=== PATIENT | male | born 1950 | race Caucasian/White ===

== ENCOUNTER 2020-06-17 15:18 | Inpatient (IN) | payer OTHER ==
[~2020-06-17] VITALS: Ht 180.3 cm; Wt 122.2 kg
[~2020-06-17 15:18] MED LIST: ALDACTONE 25MG25 MG PO; ASPIRIN EC81 MG PO; AUGMENTIN TAB875 MG PO; CARDURA 2MG TAB2 MG PO; COLACE 100MG C100 MG PO; DOXYCYCLINE HY100 MG PO; FENOFIBRIC ACI135 MG PO; FERROUS SULFAT325 M2 PO; HUMALOG100 UNIT/3 SQ; HYDRALAZINE HCL50 MG PO; IMDUR ER TAB 6060 MG PO; LANTUS INS100 UTS/M1 SQ; LANTUS100 UNIT/1 SC; LASIX 40 MG TAB40 MG PO; LIPITOR TAB 2020 MG PO; LISINOPRIL30 MG PO; LORTAB 5-325 M1 EACH PO; METFORMIN HCL1000 MG PO; METOPROLOL TART50 MG PO; NORVASC5 MG PO; PLETAL 100 MG100 MG PO
[2020-06-17] MEDS ORDERED: ZYLOPRIM 100 M100 MG PO (18:28)
[2020-06-17] MEDS ORDERED: COREG12.5 MG PO (18:29)
[2020-06-17] MEDS ORDERED: MIRALAX17 GM PO (18:38)
[2020-06-18 06:15] LABS: HEMOGLOBIN 7.8 gm/dl (14.0-17.5); RED BLOOD COUNT 2.71 M/UL (4.20-5.50); WHITE BLOOD COUNT 9.1 K/UL (4.5-11.0)
[2020-06-19 06:12] LABS: HEMOGLOBIN 7.7 gm/dl (14.0-17.5); RED BLOOD COUNT 2.64 M/UL (4.20-5.50); WHITE BLOOD COUNT 8.3 K/UL (4.5-11.0)
[2020-06-20 07:57] LABS: HEMOGLOBIN 7.2 gm/dl (14.0-17.5); RED BLOOD COUNT 2.63 M/UL (4.20-5.50); WHITE BLOOD COUNT 9.6 K/UL (4.5-11.0)
[2020-06-21 03:37] LABS: HEMOGLOBIN 7.4 gm/dl (14.0-17.5); RED BLOOD COUNT 2.54 M/UL (4.20-5.50)
[2020-06-22 06:16] LABS: HEMOGLOBIN 7.2 gm/dl (14.0-17.5); RED BLOOD COUNT 2.48 M/UL (4.20-5.50); WHITE BLOOD COUNT 10.8 K/UL (4.5-11.0)
[2020-06-23 03:17] LABS: RED BLOOD COUNT 2.42 M/UL (4.20-5.50); WHITE BLOOD COUNT 8.8 K/UL (4.5-11.0)
[2020-06-24 02:49] LABS: HEMOGLOBIN 8.1 gm/dl (14.0-17.5); WHITE BLOOD COUNT 9.3 K/UL (4.5-11.0)
[2020-06-24 03:01] LABS: RED BLOOD COUNT 2.77 M/UL (4.20-5.50)
[2020-06-25 03:41] LABS: RED BLOOD COUNT 2.76 M/UL (4.20-5.50); WHITE BLOOD COUNT 9.2 K/UL (4.5-11.0)
[2020-06-27 04:00] LABS: HEMOGLOBIN 8.5 gm/dl (14.0-17.5); RED BLOOD COUNT 2.91 M/UL (4.20-5.50); WHITE BLOOD COUNT 10.1 K/UL (4.5-11.0)
[2020-10-01] MEDS ORDERED: FERROUS SULFAT325 MG PO (07:26)
[2020-10-01] MEDS ORDERED: VITAMIN B-125000 MC2 PO (07:27)
[2020-10-01] MEDS ORDERED: NOVOLOG100 UNIT/1 SC (07:28)
[2020-10-22] MEDS ORDERED: BUMETANIDE2 MG PO (01:48)
[2020-10-22] MEDS ORDERED: ZAROXOLYN/DIULO5 MG PO (01:50)
[2020-10-22] MEDS ORDERED: CATAPRES-TTS 31 EACH TP (12:18)
[2020-10-22] MEDS ORDERED: LANTUS INS100 UTS/M1 SQ (12:21)
== END 2020-06-27 20:54 | disposition home or self-care (01) | DRG 291 ==
LOC: CDU 16:01 → M/S 16:01
PROVIDERS: Internal Medicine Infectious Disease; Internal Medicine Nephrology; ADMIT Internal Medicine
PROC: B24BZZZ Ultrasonography of Heart with Aorta (ICD-10-PCS; 2020-06-21)
PROC: 30233N1 Transfusion of Nonautologous Red Blood Cells into Peripheral Vein, Percutaneous Approach (ICD-10-PCS; principal; 2020-06-23)
DX: I13.0 Hypertensive heart and chronic kidney disease with heart failure and stage 1 through stage 4 chronic kidney disease, or unspecified chronic kidney disease (principal); I50.33 Acute on chronic diastolic (congestive) heart failure; J96.01 Acute respiratory failure with hypoxia; N17.9 Acute kidney failure, unspecified; E66.2 Morbid (severe) obesity with alveolar hypoventilation; Z20.822 Contact with and (suspected) exposure to COVID-19; K59.00 Constipation, unspecified; N18.30 Chronic kidney disease, stage 3 unspecified; E11.22 Type 2 diabetes mellitus with diabetic chronic kidney disease; E78.5 Hyperlipidemia, unspecified; E11.65 Type 2 diabetes mellitus with hyperglycemia; I89.0 Lymphedema, not elsewhere classified; D50.9 Iron deficiency anemia, unspecified; R19.5 Other fecal abnormalities; I25.10 Atherosclerotic heart disease of native coronary artery without angina pectoris; Z95.1 Presence of aortocoronary bypass graft; Z90.49 Acquired absence of other specified parts of digestive tract; Z82.49 Family history of ischemic heart disease and other diseases of the circulatory system; Z87.891 Personal history of nicotine dependence; Z68.39 Body mass index [BMI] 39.0-39.9, adult; Z79.82 Long term (current) use of aspirin; Z79.4 Long term (current) use of insulin; Z79.899 Other long term (current) drug therapy; Z85.038 Personal history of other malignant neoplasm of large intestine
CPT/HCPCS: ECHO; 36415; 36430; 36600; 71045; 71046; 80048; 80053; 82270; 82272; 82803; 82962; 83036; 83540; 83550; 83735; 85025; 86140; 86850; 86870; 86900; 86901; 86902; 86905; 86920; 86922; 93306; 93971; 94640; 94660; 94664; 94760; 96374; 96375; 96376; 97110-GP-CQ; 97116-GP-CQ; 97161; C9113; G0378; G0379; J0696; J1644; J1756; J1940; J7070; P9016; U0002

== ENCOUNTER → 2020-08-12 | Outpatient (CLI) | payer OTHER ==
[~2020-08-12] MED LIST changes: +BUMETANIDE2 MG PO; +CATAPRES-TTS 31 EACH TP; +COREG12.5 MG PO; +FERROUS SULFAT325 MG PO; +HUMALOG100 UNIT/1 SC; +LOPRESSOR50 MG PO; +MIRALAX17 GM PO; +NOVOLOG100 UNIT/1 SC; +PROTONIX 40 MG40 M1 PO; +TYLENOL325 MG PO; +VITAMIN B-125000 MC2 PO; +ZAROXOLYN/DIULO5 MG PO; +ZYLOPRIM 100 M100 MG PO
[2020-08-13 14:17] LABS: HEMOGLOBIN 7.4 gm/dl (14.0-17.5)
== END ==
LOC: LAB 15:08
PROVIDERS: Internal Medicine Hematology & Oncology
DX: D64.9 Anemia, unspecified (principal)
CPT/HCPCS: 80053; 82668; 82728; 83010; 83540; 83550; 83615; 85014; 85018; 85045; 86850; 86870; 86900; 86901; 86920; 86922; P9016

== ENCOUNTER → 2020-08-13 | Outpatient (CLI) | payer OTHER ==
[~2020-08-13] VITALS: Ht 180.3 cm; Wt 127.9 kg
== END ==
LOC: OPSV 08:00
DX: D64.9 Anemia, unspecified (principal)
CPT/HCPCS: 36430; 96365; 96375; J1940; P9016

== ENCOUNTER → 2020-09-02 | Outpatient (CLI) | payer OTHER ==
[~2020-09-02] MED LIST changes: +BUMETANIDE1 MG PO
== END ==
LOC: HEART 5 09:00
DX: I25.10 Atherosclerotic heart disease of native coronary artery without angina pectoris (principal); R06.89 Other abnormalities of breathing
CPT/HCPCS: 78452; A9502; J2785

== ENCOUNTER → 2020-10-01 | Day surgery (SDC) | payer OTHER | END | disposition home or self-care (01) | LOC: OR 06:38 | PROVIDERS: Internal Medicine Gastroenterology | PROC: 0DJD8ZZ Inspection of Lower Intestinal Tract, Via Natural or Artificial Opening Endoscopic (ICD-10-PCS; 2020-10-01) | PROC: 0DB68ZX Excision of Stomach, Via Natural or Artificial Opening Endoscopic, Diagnostic (ICD-10-PCS; principal; 2020-10-01 09:05) | PROC: 0DB78ZX Excision of Stomach, Pylorus, Via Natural or Artificial Opening Endoscopic, Diagnostic (ICD-10-PCS; 2020-10-01 09:05) | DX: K29.51 Unspecified chronic gastritis with bleeding (principal); K31.9 Disease of stomach and duodenum, unspecified; K21.00 Gastro-esophageal reflux disease with esophagitis, without bleeding; K57.30 Diverticulosis of large intestine without perforation or abscess without bleeding; K64.1 Second degree hemorrhoids; K25.9 Gastric ulcer, unspecified as acute or chronic, without hemorrhage or perforation; D50.0 Iron deficiency anemia secondary to blood loss (chronic); I25.10 Atherosclerotic heart disease of native coronary artery without angina pectoris; I13.0 Hypertensive heart and chronic kidney disease with heart failure and stage 1 through stage 4 chronic kidney disease, or unspecified chronic kidney disease; E11.22 Type 2 diabetes mellitus with diabetic chronic kidney disease; N18.30 Chronic kidney disease, stage 3 unspecified; I50.32 Chronic diastolic (congestive) heart failure; E78.5 Hyperlipidemia, unspecified; G47.30 Sleep apnea, unspecified; E78.00 Pure hypercholesterolemia, unspecified; E11.628 Type 2 diabetes mellitus with other skin complications; L03.90 Cellulitis, unspecified; I89.0 Lymphedema, not elsewhere classified; E66.01 Morbid (severe) obesity due to excess calories; Z68.39 Body mass index [BMI] 39.0-39.9, adult; Z95.5 Presence of coronary angioplasty implant and graft; Z85.038 Personal history of other malignant neoplasm of large intestine; Z87.891 Personal history of nicotine dependence; Z79.4 Long term (current) use of insulin; Z79.82 Long term (current) use of aspirin; Z79.899 Other long term (current) drug therapy; Z90.49 Acquired absence of other specified parts of digestive tract | CPT/HCPCS: 82962; J2001; J2704; J7040 ==

== ENCOUNTER 2020-10-16 15:08 | Emergency (ER) | payer OTHER ==
[~2020-10-16 15:08] MED LIST changes: -BUMETANIDE1 MG PO; -BUMETANIDE2 MG PO; -CATAPRES-TTS 31 EACH TP; -HUMALOG100 UNIT/1 SC; -LOPRESSOR50 MG PO; -PROTONIX 40 MG40 M1 PO; -TYLENOL325 MG PO; -ZAROXOLYN/DIULO5 MG PO
[2020-10-16 16:26] LABS: HEMOGLOBIN 7.5 gm/dl (14.0-17.5); RED BLOOD COUNT 2.57 M/UL (4.20-5.50); WHITE BLOOD COUNT 9.3 K/UL (4.5-11.0)
[2020-10-22] MEDS ORDERED: BUMETANIDE2 MG PO (01:48)
[2020-10-22] MEDS ORDERED: ZAROXOLYN/DIULO5 MG PO (01:50)
[2020-10-22] MEDS ORDERED: CATAPRES-TTS 31 EACH TP (12:18)
[2020-10-22] MEDS ORDERED: LANTUS INS100 UTS/M1 SQ (12:21)
== END 2020-10-17 01:45 | disposition home or self-care (01) ==
LOC: ER1 15:08
DX: I13.0 Hypertensive heart and chronic kidney disease with heart failure and stage 1 through stage 4 chronic kidney disease, or unspecified chronic kidney disease (principal); N18.9 Chronic kidney disease, unspecified; I50.9 Heart failure, unspecified; E11.22 Type 2 diabetes mellitus with diabetic chronic kidney disease; D63.1 Anemia in chronic kidney disease; E78.5 Hyperlipidemia, unspecified; E11.51 Type 2 diabetes mellitus with diabetic peripheral angiopathy without gangrene; I25.10 Atherosclerotic heart disease of native coronary artery without angina pectoris; Z90.89 Acquired absence of other organs
CPT/HCPCS: 36430; 71045; 80053; 81001; 82962; 85025; 86850; 86870; 86900; 86901; 86902; 86920; 86922; 96374; 99284; J7050; P9016

== ENCOUNTER 2020-10-22 14:13 | Observation (INO) | payer OTHER ==
[~2020-10-22] VITALS: Ht 180.3 cm; Wt 121.6 kg
[~2020-10-22 14:13] MED LIST changes: +BUMETANIDE2 MG PO; +CATAPRES-TTS 31 EACH TP; +ZAROXOLYN/DIULO5 MG PO
[2020-10-22 15:02] LABS: RED BLOOD COUNT 1.97 M/UL (4.20-5.50); WHITE BLOOD COUNT 9.5 K/UL (4.5-11.0)
[2020-10-22 15:05] LABS: HEMOGLOBIN 5.9 gm/dl (14.0-17.5)
[2020-10-22] MEDS ORDERED: LANTUS100 UNIT/1 SC (17:15)
[2020-10-23 04:28] LABS: WHITE BLOOD COUNT 8.7 K/UL (4.5-11.0)
[2020-10-23 04:31] LABS: RED BLOOD COUNT 2.32 M/UL (4.20-5.50)
[2020-10-23 04:33] LABS: HEMOGLOBIN 6.8 gm/dl (14.0-17.5)
[2020-10-23 12:07] LABS: HEMOGLOBIN 7.9 gm/dl (14.0-17.5)
[2020-10-24 06:20] LABS: HEMOGLOBIN 7.8 gm/dl (14.0-17.5); WHITE BLOOD COUNT 8.7 K/UL (4.5-11.0)
[2020-10-24 06:23] LABS: RED BLOOD COUNT 2.63 M/UL (4.20-5.50)
[2020-10-24] MEDS ORDERED: PROTONIX 40 MG40 M1 PO (09:51)
== END 2020-10-24 11:06 | disposition home or self-care (01) ==
LOC: ER1 14:13 → CDU 16:14 → MED SURG 4 20:55
PROVIDERS: Emergency Medicine; Physician Assistant; Physician Assistant Medical; ADMIT Internal Medicine
DX: I13.0 Hypertensive heart and chronic kidney disease with heart failure and stage 1 through stage 4 chronic kidney disease, or unspecified chronic kidney disease (principal); E11.22 Type 2 diabetes mellitus with diabetic chronic kidney disease; N18.30 Chronic kidney disease, stage 3 unspecified; I50.32 Chronic diastolic (congestive) heart failure; D63.1 Anemia in chronic kidney disease; D50.9 Iron deficiency anemia, unspecified; E53.8 Deficiency of other specified B group vitamins; I25.10 Atherosclerotic heart disease of native coronary artery without angina pectoris; E11.51 Type 2 diabetes mellitus with diabetic peripheral angiopathy without gangrene; I89.0 Lymphedema, not elsewhere classified; K21.00 Gastro-esophageal reflux disease with esophagitis, without bleeding; G47.33 Obstructive sleep apnea (adult) (pediatric); E66.01 Morbid (severe) obesity due to excess calories; Z68.37 Body mass index [BMI] 37.0-37.9, adult; Z20.822 Contact with and (suspected) exposure to COVID-19; Z85.038 Personal history of other malignant neoplasm of large intestine; Z95.1 Presence of aortocoronary bypass graft; Z79.4 Long term (current) use of insulin; Z79.899 Other long term (current) drug therapy; Z95.5 Presence of coronary angioplasty implant and graft; Z92.21 Personal history of antineoplastic chemotherapy; Z79.82 Long term (current) use of aspirin
CPT/HCPCS: 36415; 36430; 71045; 80048; 80053; 82272; 82607; 82728; 82746; 82962; 83540; 83550; 83880; 85014; 85018; 85025; 85384; 85610; 85730; 86850; 86870; 86900; 86901; 86902; 86920; 86922; 93005; 96374; 96375; 96376; 99285; C9113; G0378; J1756; P9016; U0002

== ENCOUNTER 2020-11-08 17:30 | Inpatient (IN) | payer OTHER ==
[~2020-11-08] VITALS: Ht 180.3 cm; Wt 123.6 kg
[~2020-11-08 17:30] MED LIST changes: +PROTONIX 40 MG40 M1 PO
[2020-11-08 18:32] LABS: HEMOGLOBIN 8.3 gm/dl (14.0-17.5); RED BLOOD COUNT 2.84 M/UL (4.20-5.50); WHITE BLOOD COUNT 7.2 K/UL (4.5-11.0)
[2020-11-09 02:16] LABS: HEMOGLOBIN 8.3 gm/dl (14.0-17.5); RED BLOOD COUNT 2.83 M/UL (4.20-5.50); WHITE BLOOD COUNT 7.2 K/UL (4.5-11.0)
--- NOTE | 2020-11-09 15:31 | NUR ---
5888 T[address] [place] WITH MD MCDONALD NOTIFIED OF PTS HR DROPPIND TO 29 NO NEW ORDERS NOTED
[2020-11-10 04:16] LABS: RED BLOOD COUNT 2.75 M/UL (4.20-5.50); WHITE BLOOD COUNT 6.6 K/UL (4.5-11.0)
[2020-11-11 03:01] LABS: HEMOGLOBIN 8.6 gm/dl (14.0-17.5); RED BLOOD COUNT 2.93 M/UL (4.20-5.50); WHITE BLOOD COUNT 8.1 K/UL (4.5-11.0)
[2020-11-11] MEDS ORDERED: HUMALOG100 UNIT/1 SC (13:23)
[2020-11-11] MEDS ORDERED: TYLENOL325 MG PO (13:23)
[2020-11-11] MEDS ORDERED: LOPRESSOR50 MG PO (13:24)
[2020-11-13 03:03] LABS: HEMOGLOBIN 8.5 gm/dl (14.0-17.5); RED BLOOD COUNT 2.89 M/UL (4.20-5.50); WHITE BLOOD COUNT 7.9 K/UL (4.5-11.0)
[2020-11-17] MEDS ORDERED: BUMETANIDE1 MG PO (12:20)
[2020-11-17] MEDS ORDERED: LOPRESSOR50 MG PO (12:33)
== END 2020-11-17 15:53 | disposition home or self-care (01) | DRG 291 ==
LOC: ER1 17:30 → M/S 20:44 → CDU 20:44 → M/S 23:06
PROVIDERS: Internal Medicine; Internal Medicine Infectious Disease; Internal Medicine Nephrology; Physician Assistant; Physician Assistant Medical; ADMIT Internal Medicine
DX: I13.0 Hypertensive heart and chronic kidney disease with heart failure and stage 1 through stage 4 chronic kidney disease, or unspecified chronic kidney disease (principal); I50.33 Acute on chronic diastolic (congestive) heart failure; I48.20 Chronic atrial fibrillation, unspecified; N17.9 Acute kidney failure, unspecified; I49.5 Sick sinus syndrome; Z20.822 Contact with and (suspected) exposure to COVID-19; I44.0 Atrioventricular block, first degree; N18.30 Chronic kidney disease, stage 3 unspecified; D63.1 Anemia in chronic kidney disease; R53.81 Other malaise; I25.10 Atherosclerotic heart disease of native coronary artery without angina pectoris; I89.0 Lymphedema, not elsewhere classified; I45.10 Unspecified right bundle-branch block; E11.51 Type 2 diabetes mellitus with diabetic peripheral angiopathy without gangrene; E66.01 Morbid (severe) obesity due to excess calories; I08.1 Rheumatic disorders of both mitral and tricuspid valves; E78.5 Hyperlipidemia, unspecified; I27.20 Pulmonary hypertension, unspecified; G47.33 Obstructive sleep apnea (adult) (pediatric); E11.22 Type 2 diabetes mellitus with diabetic chronic kidney disease; E11.43 Type 2 diabetes mellitus with diabetic autonomic (poly)neuropathy; Z79.01 Long term (current) use of anticoagulants; Z95.1 Presence of aortocoronary bypass graft; Z79.4 Long term (current) use of insulin; Z85.038 Personal history of other malignant neoplasm of large intestine; Z90.49 Acquired absence of other specified parts of digestive tract; Z82.49 Family history of ischemic heart disease and other diseases of the circulatory system; Z83.3 Family history of diabetes mellitus; Z91.14 Patient's other noncompliance with medication regimen; Z87.891 Personal history of nicotine dependence; Z95.5 Presence of coronary angioplasty implant and graft; Z79.82 Long term (current) use of aspirin; Z68.38 Body mass index [BMI] 38.0-38.9, adult
CPT/HCPCS: 0240U; 36415; 71045; 73700; 80048; 80053; 81001; 82550; 82553; 82728; 82962; 83540; 83550; 83874; 83880; 84439; 84443; 84484; 85025; 85610; 86140; 93005; 93270; 93925; 93970; 97161; 99285; J1756

== ENCOUNTER 2020-11-29 15:11 | Emergency (ER) | payer OTHER ==
[~2020-11-29 15:11] MED LIST changes: -LEVOFLOXACIN500 MG PO; -PERCOCET 5/325 T1 EA PO
[2020-11-29 16:20] LABS: HEMOGLOBIN 9.1 gm/dl (14.0-17.5); RED BLOOD COUNT 3.15 M/UL (4.20-5.50); WHITE BLOOD COUNT 9.7 K/UL (4.5-11.0)
[2020-11-29] MEDS ORDERED: PERCOCET 5/325 T1 EA PO (23:41)
== END 2020-11-30 00:18 | disposition home or self-care (01) ==
LOC: ER1 15:11
PROVIDERS: Physician Assistant
DX: R10.9 Unspecified abdominal pain (principal); E78.5 Hyperlipidemia, unspecified; E11.9 Type 2 diabetes mellitus without complications; I11.0 Hypertensive heart disease with heart failure; I50.9 Heart failure, unspecified; Z90.49 Acquired absence of other specified parts of digestive tract; Z95.1 Presence of aortocoronary bypass graft
CPT/HCPCS: 80053; 81001; 83690; 85025; 99284

== ENCOUNTER → 2020-11-29 | Outpatient (CLI) | payer OTHER ==
[~2020-11-29] MED LIST changes: +BUMETANIDE1 MG PO; +HUMALOG100 UNIT/1 SC; +LEVOFLOXACIN500 MG PO; +LOPRESSOR50 MG PO; +PERCOCET 5/325 T1 EA PO; +TYLENOL325 MG PO
[2020-11-29 14:37] LABS: RED BLOOD COUNT 3.09 M/UL (4.20-5.50); WHITE BLOOD COUNT 8.6 K/UL (4.5-11.0)
== END ==
LOC: LAB 12:03
PROVIDERS: Internal Medicine Cardiovascular Disease
DX: I48.91 Unspecified atrial fibrillation (principal); I44.2 Atrioventricular block, complete; I49.5 Sick sinus syndrome
CPT/HCPCS: 36415; 80048; 85025

== ENCOUNTER 2020-12-03 07:13 | Outpatient (CLI) | payer OTHER ==
[~2020-12-03] VITALS: Ht 180.3 cm; Wt 123.4 kg
[~2020-12-03 07:13] MED LIST changes: +PERCOCET 5/325 T1 EA PO
[2020-12-03] MEDS ORDERED: LEVOFLOXACIN500 MG PO (11:37)
[2020-12-04] MEDS ORDERED: LEVOFLOXACIN500 MG PO (09:52)
== END 2020-12-04 10:46 | disposition home or self-care (01) ==
LOC: CATH 07:13 → MED SURG 4 13:37 → CATH 12-04 10:46
DX: I49.5 Sick sinus syndrome (principal); I44.2 Atrioventricular block, complete; I45.10 Unspecified right bundle-branch block; I48.91 Unspecified atrial fibrillation; I13.10 Hypertensive heart and chronic kidney disease without heart failure, with stage 1 through stage 4 chronic kidney disease, or unspecified chronic kidney disease; I50.32 Chronic diastolic (congestive) heart failure; N18.9 Chronic kidney disease, unspecified; I25.10 Atherosclerotic heart disease of native coronary artery without angina pectoris; G47.33 Obstructive sleep apnea (adult) (pediatric); D50.9 Iron deficiency anemia, unspecified; Z20.822 Contact with and (suspected) exposure to COVID-19; Z95.1 Presence of aortocoronary bypass graft
CPT/HCPCS: 33208; 71045; 82962; 93005; 99152; 99153; C1898; C2621; J2250; J3010; J3370; J7040; J7050; J7070

== ENCOUNTER 2020-12-31 19:42 | Emergency (ER) | payer OTHER ==
[~2020-12-31 19:42] MED LIST changes: +LEVOFLOXACIN500 MG PO
[2020-12-31 21:58] LABS: HEMOGLOBIN 10.6 gm/dl (14.0-17.5); RED BLOOD COUNT 3.85 M/UL (4.20-5.50); WHITE BLOOD COUNT 10.8 K/UL (4.5-11.0)
[2020-12-31 22:20] LABS: BUN/CREATININE RATIO 27 (0-10)
[2021-01-01] MEDS ORDERED: BUMETANIDE2 MG PO (03:26)
== END 2021-01-01 05:45 | disposition home or self-care (01) ==
LOC: ER1 19:42
PROVIDERS: Physician Assistant
DX: R06.02 Shortness of breath (principal); R60.0 Localized edema; I13.0 Hypertensive heart and chronic kidney disease with heart failure and stage 1 through stage 4 chronic kidney disease, or unspecified chronic kidney disease; I50.9 Heart failure, unspecified; E11.22 Type 2 diabetes mellitus with diabetic chronic kidney disease; N18.9 Chronic kidney disease, unspecified; Z95.1 Presence of aortocoronary bypass graft
CPT/HCPCS: 71045; 80053; 82550; 82553; 83874; 83880; 84484; 85025; 93005; 96374; 99285; J1940

== ENCOUNTER 2021-08-01 12:03 | Inpatient (IN) | payer OTHER ==
[~2021-08-01] VITALS: Ht 180.3 cm; Wt 128.5 kg
[~2021-08-01 12:03] MED LIST changes: -HYDRALAZINE HCL50 MG PO; -LIPITOR TAB 2020 MG PO
[2021-08-01 12:53] LABS: HEMOGLOBIN 11.4 gm/dl (14.0-17.5); WHITE BLOOD COUNT 12.5 K/UL (4.5-11.0)
[2021-08-02 05:49] LABS: HEMOGLOBIN 11.1 gm/dl (14.0-17.5); RED BLOOD COUNT 3.94 M/UL (4.20-5.50); WHITE BLOOD COUNT 12.3 K/UL (4.5-11.0)
[2021-08-02] MEDS ORDERED: DULOXETINE HCL30 MG PO (08:40)
[2021-08-02] MEDS ORDERED: DOXAZOSIN MESYLA8 MG PO (08:40)
[2021-08-02] MEDS ORDERED: BUMETANIDE1 MG PO (08:50)
[2021-08-02] MEDS ORDERED: CARVEDILOL3.125 MG PO (08:55)
[2021-08-02] MEDS ORDERED: TRULICITY0.75 MG/0. SQ (08:58)
[2021-08-02] MEDS ORDERED: HYDRALAZINE HC100 MG PO (12:16)
[2021-08-02] MEDS ORDERED: LIPITOR TAB 2020 MG PO (12:16)
[2021-08-03 04:18] LABS: HEMOGLOBIN 10.7 gm/dl (14.0-17.5); RED BLOOD COUNT 3.86 M/UL (4.20-5.50); WHITE BLOOD COUNT 12.8 K/UL (4.5-11.0)
[2021-08-04 05:54] LABS: RED BLOOD COUNT 3.95 M/UL (4.20-5.50); WHITE BLOOD COUNT 13.4 K/UL (4.5-11.0)
--- NOTE | 2021-08-05 10:26 | NUR ---
PATIENT IS X3 ASSIST TO GET UP. WITH PATIENT ASKED FOR TOWELS AND NO RINSE SHOWER CAP. PATIENT AND INSTRUCTED TO CALL OUT FOR HELP. AND PATIENT INSTRUCTED NOT TO TRY TO GET PATIENT UP ALONE. WILL CONTINUE TO MONITOR.
[2021-08-06 05:54] LABS: WHITE BLOOD COUNT 13.4 K/UL (4.5-11.0)
[2021-08-06 05:56] LABS: RED BLOOD COUNT 3.52 M/UL (4.20-5.50)
[2021-08-06] MEDS ORDERED: TYLENOL 8 HOUR650 MG PO (08:34)
[2021-08-06] MEDS ORDERED: BUMETANIDE1 MG PO (08:34)
== END 2021-08-06 12:23 | disposition home or self-care (01) | DRG 291 ==
LOC: ER1 12:03 → CDU 16:55 → MED SURG 4 16:55
PROVIDERS: Internal Medicine; Internal Medicine Nephrology; Physician Assistant; ADMIT Internal Medicine
PROC: B24BZZZ Ultrasonography of Heart with Aorta (ICD-10-PCS; principal; 2021-08-02)
DX: I13.0 Hypertensive heart and chronic kidney disease with heart failure and stage 1 through stage 4 chronic kidney disease, or unspecified chronic kidney disease (principal); I50.33 Acute on chronic diastolic (congestive) heart failure; N17.9 Acute kidney failure, unspecified; Z20.822 Contact with and (suspected) exposure to COVID-19; I27.20 Pulmonary hypertension, unspecified; I49.5 Sick sinus syndrome; N18.30 Chronic kidney disease, stage 3 unspecified; E11.22 Type 2 diabetes mellitus with diabetic chronic kidney disease; E11.51 Type 2 diabetes mellitus with diabetic peripheral angiopathy without gangrene; I73.9 Peripheral vascular disease, unspecified; E78.5 Hyperlipidemia, unspecified; G47.33 Obstructive sleep apnea (adult) (pediatric); E66.01 Morbid (severe) obesity due to excess calories; K21.00 Gastro-esophageal reflux disease with esophagitis, without bleeding; L89.322 Pressure ulcer of left buttock, stage 2; L89.312 Pressure ulcer of right buttock, stage 2; D63.1 Anemia in chronic kidney disease; I25.10 Atherosclerotic heart disease of native coronary artery without angina pectoris; E11.21 Type 2 diabetes mellitus with diabetic nephropathy; M25.552 Pain in left hip; M25.551 Pain in right hip; M70.51 Other bursitis of knee, right knee; R53.81 Other malaise; E11.40 Type 2 diabetes mellitus with diabetic neuropathy, unspecified; G89.29 Other chronic pain; I89.0 Lymphedema, not elsewhere classified; M54.50 Low back pain, unspecified; Z95.5 Presence of coronary angioplasty implant and graft; Z85.038 Personal history of other malignant neoplasm of large intestine; Z95.0 Presence of cardiac pacemaker; Z90.49 Acquired absence of other specified parts of digestive tract; Z95.828 Presence of other vascular implants and grafts; Z82.49 Family history of ischemic heart disease and other diseases of the circulatory system; Z83.3 Family history of diabetes mellitus; Z98.890 Other specified postprocedural states; Z68.38 Body mass index [BMI] 38.0-38.9, adult
CPT/HCPCS: ECHO; 36415; 36600; 71045; 72100; 73522; 80048; 80053; 81001; 82550; 82553; 82728; 82803; 82962; 83540; 83550; 83735; 83880; 84484; 85025; 85027; 93005; 93306; 96374; 97110; 97116-GP-CQ; 97161; 97166; 99285; J1205; J1650; J1940; U0002

== ENCOUNTER → 2021-08-28 | Outpatient (CLI) | payer OTHER ==
[~2021-08-28] MED LIST changes: +CARVEDILOL3.125 MG PO; +DOXAZOSIN MESYLA8 MG PO; +DULOXETINE HCL30 MG PO; +ELIQUIS5 MG PO; -HUMALOG100 UNIT/1 SC; +HYDRALAZINE HC100 MG PO; +LIPITOR TAB 2020 MG PO; +MULTAQ 400 MG400 MG PO; +NOVOLOG FL100 UNIT/1 SQ; +TORSEMIDE100 MG PO; +TRULICITY0.75 MG/0. SQ; +TYLENOL 8 HOUR650 MG PO
== END ==
LOC: KOH-I 08:57
DX: M51.36 Other intervertebral disc degeneration, lumbar region (principal); M25.78 Osteophyte, vertebrae; M48.061 Spinal stenosis, lumbar region without neurogenic claudication
CPT/HCPCS: 72131

== ENCOUNTER 2021-08-31 17:51 | Inpatient (IN) | payer OTHER ==
[~2021-08-31] VITALS: Ht 180.3 cm; Wt 125.6 kg
[~2021-08-31 17:51] MED LIST changes: -ELIQUIS5 MG PO; -MULTAQ 400 MG400 MG PO; -TORSEMIDE100 MG PO
[2021-08-31 19:40] LABS: RED BLOOD COUNT 3.55 M/UL (4.20-5.50); WHITE BLOOD COUNT 8.8 K/UL (4.5-11.0)
[2021-09-01 03:20] LABS: HEMOGLOBIN 10.1 gm/dl (14.0-17.5); RED BLOOD COUNT 3.62 M/UL (4.20-5.50); WHITE BLOOD COUNT 9.7 K/UL (4.5-11.0)
[2021-09-01] MEDS ORDERED: DOXAZOSIN MESYLA8 MG PO (09:42)
[2021-09-01] MEDS ORDERED: TORSEMIDE100 MG PO (09:53)
[2021-09-01] MEDS ORDERED: MULTAQ 400 MG400 MG PO (09:56)
[2021-09-01] MEDS ORDERED: ELIQUIS5 MG PO (09:56)
--- NOTE | 2021-09-01 10:52 | NUR ---
PTS BLOOD SUGAR 185. LANTUS 25UNITS AND HUMALOG 4 UNITS GIVEN
[2021-09-02 06:18] LABS: HEMOGLOBIN 10.2 gm/dl (14.0-17.5); RED BLOOD COUNT 3.69 M/UL (4.20-5.50); WHITE BLOOD COUNT 9.2 K/UL (4.5-11.0)
[2021-09-02 11:24] LABS: HEMOGLOBIN 10.5 gm/dl (14.0-17.5); RED BLOOD COUNT 3.75 M/UL (4.20-5.50); WHITE BLOOD COUNT 8.3 K/UL (4.5-11.0)
[2021-09-04] MEDS ORDERED: DEMADEX 20 MG T20 MG PO (16:06)
== END 2021-09-04 17:45 | disposition home or self-care (01) | DRG 291 ==
LOC: ER1 17:51 → M/S 23:33 → CDU 23:33 → M/S 23:33
PROVIDERS: Internal Medicine; Internal Medicine Nephrology; Physician Assistant; Student in an Organized Health Care Education/Training Program; ADMIT Internal Medicine
DX: I13.0 Hypertensive heart and chronic kidney disease with heart failure and stage 1 through stage 4 chronic kidney disease, or unspecified chronic kidney disease (principal); I50.33 Acute on chronic diastolic (congestive) heart failure; N17.9 Acute kidney failure, unspecified; Z20.822 Contact with and (suspected) exposure to COVID-19; K57.90 Diverticulosis of intestine, part unspecified, without perforation or abscess without bleeding; G47.33 Obstructive sleep apnea (adult) (pediatric); I25.10 Atherosclerotic heart disease of native coronary artery without angina pectoris; M25.561 Pain in right knee; E78.5 Hyperlipidemia, unspecified; I48.0 Paroxysmal atrial fibrillation; I49.5 Sick sinus syndrome; E11.51 Type 2 diabetes mellitus with diabetic peripheral angiopathy without gangrene; E11.22 Type 2 diabetes mellitus with diabetic chronic kidney disease; D50.9 Iron deficiency anemia, unspecified; I73.9 Peripheral vascular disease, unspecified; I27.20 Pulmonary hypertension, unspecified; N18.30 Chronic kidney disease, stage 3 unspecified; Z95.0 Presence of cardiac pacemaker; Z99.81 Dependence on supplemental oxygen; Z95.828 Presence of other vascular implants and grafts; Z85.038 Personal history of other malignant neoplasm of large intestine; Z90.49 Acquired absence of other specified parts of digestive tract; Z95.1 Presence of aortocoronary bypass graft; Z98.890 Other specified postprocedural states; Z82.49 Family history of ischemic heart disease and other diseases of the circulatory system; Z83.3 Family history of diabetes mellitus; Z87.891 Personal history of nicotine dependence; Z79.899 Other long term (current) drug therapy; Z79.01 Long term (current) use of anticoagulants
CPT/HCPCS: 36415; 71045; 73562; 80048; 80053; 82550; 82553; 82962; 83036; 83735; 83880; 84484; 84550; 85025; 93005; 96374; 96376; 99285; G0378; J1205; J1644; J1940; P9047; U0002

== ENCOUNTER 2021-09-13 11:55 | Inpatient (IN) | payer OTHER ==
[~2021-09-13] VITALS: Ht 180.3 cm; Wt 122.9 kg
[~2021-09-13 11:55] MED LIST changes: +DEMADEX 20 MG T20 MG PO; +ELIQUIS5 MG PO; +MULTAQ 400 MG400 MG PO; +TORSEMIDE100 MG PO
[2021-09-13 12:55] LABS: HEMOGLOBIN 9.7 gm/dl (14.0-17.5); RED BLOOD COUNT 3.48 M/UL (4.20-5.50)
[2021-09-13] MEDS ORDERED: TORSEMIDE20 MG PO (18:09)
--- NOTE | 2021-09-13 19:43 | NUR ---
NURSE TOOK TELEPHONE ORDER FOR HOME MED REC. PHARMACY NOTIFIED.
[2021-09-14 02:40] LABS: HEMOGLOBIN 9.7 gm/dl (14.0-17.5); RED BLOOD COUNT 3.53 M/UL (4.20-5.50); WHITE BLOOD COUNT 10.3 K/UL (4.5-11.0)
--- NOTE | 2021-09-15 04:24 | NUR ---
PATIENT HAS HISTORY OF SLEEP APNEA, EARS NOTHING AT HOME WHILE SLEEPING. HERE HE HAS DESATTED INTO THE HIGH 60'S WHILE ASLEEP. HE WAS PLACED ON 3 L NC AND STILL DESATTED TO THE MID TO UPPER 60'S. HE MOUTH BREATHES AND WILL INCREAS O2 SAT QUICKLY. WILL PASS OVER TO DAYSHIFT RN THAT PROVIDER NEEDS TO BE MADE AWARE OF THIS AND THE TELE STRIPS ARE ON PATIENTS CHART.
[2021-09-15 11:49] LABS: HEMOGLOBIN 10.1 gm/dl (14.0-17.5); RED BLOOD COUNT 3.64 M/UL (4.20-5.50); WHITE BLOOD COUNT 9.2 K/UL (4.5-11.0)
[2021-09-17 06:29] LABS: RED BLOOD COUNT 3.6 M/UL (4.20-5.50); WHITE BLOOD COUNT 9.6 K/UL (4.5-11.0)
[2021-09-18 06:55] LABS: HEMOGLOBIN 9.9 gm/dl (14.0-17.5); RED BLOOD COUNT 3.55 M/UL (4.20-5.50); WHITE BLOOD COUNT 10.4 K/UL (4.5-11.0)
[2021-09-18] MEDS ORDERED: ZAROXOLYN/DIULO5 MG PO ×2 (11:13→11:26)
[2021-09-18] MEDS ORDERED: BUMETANIDE1 MG PO ×2 (11:13→11:26)
--- NOTE | 2021-09-18 11:57 | NUR ---
PATIENT AND PATIENT'S EXPRESSED CONCERNS ABOUT DISCHARGE THIS AM. RN NOTIFIED DR. WHITMAN WHO INSTRUCTED RN TO EDUCATE PATIENT ON CHF WELL WEIGHT PARAMETER INSTRUCTIONS BY DR. PICHARDO WITH DISCHARGE PAPERWORK.
--- NOTE | 2021-09-18 12:32 | NUR ---
RN SPOKE WITH HAND STITCHER ABOUT PATIENT'S STRUGGLE WITH CHF EXACERBATION RESULTING IN FREQUENT HOSPITAL ADMISSIONS. DIETARY AGREED TO SPEAK WITH PATIENT ABOUT CONCERNS. DR. WHITMAN MADE AWARE.
--- NOTE | 2021-09-18 12:38 | NUR ---
DRAG CAR RACER OSMEL ALSO STATED THAT HOME HEALTH WAS NOTIFIED THAT PATIENT REQUIRES CONGESTIVE HEART FAILURE (CHF) EDUCATION AT HOME WELL.
--- NOTE | 2021-09-18 13:56 | NUR ---
REPORT CALLED TO [facility].
== END 2021-09-18 13:58 | disposition home or self-care (01) | DRG 291 ==
LOC: ER1 11:55 → CDU 17:03 → MED SURG 4 17:03
PROVIDERS: Internal Medicine; Internal Medicine Nephrology; Physician Assistant; ADMIT Internal Medicine
DX: I13.0 Hypertensive heart and chronic kidney disease with heart failure and stage 1 through stage 4 chronic kidney disease, or unspecified chronic kidney disease (principal); I50.43 Acute on chronic combined systolic (congestive) and diastolic (congestive) heart failure; N17.9 Acute kidney failure, unspecified; I47.1 Supraventricular tachycardia; Z20.822 Contact with and (suspected) exposure to COVID-19; I48.0 Paroxysmal atrial fibrillation; D63.1 Anemia in chronic kidney disease; N18.30 Chronic kidney disease, stage 3 unspecified; I25.10 Atherosclerotic heart disease of native coronary artery without angina pectoris; I89.0 Lymphedema, not elsewhere classified; G47.33 Obstructive sleep apnea (adult) (pediatric); E11.51 Type 2 diabetes mellitus with diabetic peripheral angiopathy without gangrene; K21.9 Gastro-esophageal reflux disease without esophagitis; E66.01 Morbid (severe) obesity due to excess calories; L89.151 Pressure ulcer of sacral region, stage 1; E78.5 Hyperlipidemia, unspecified; E11.22 Type 2 diabetes mellitus with diabetic chronic kidney disease; I49.5 Sick sinus syndrome; Z79.01 Long term (current) use of anticoagulants; Z95.0 Presence of cardiac pacemaker; Z95.1 Presence of aortocoronary bypass graft; Z85.038 Personal history of other malignant neoplasm of large intestine; Z83.3 Family history of diabetes mellitus; Z82.49 Family history of ischemic heart disease and other diseases of the circulatory system; Z79.4 Long term (current) use of insulin; Z87.891 Personal history of nicotine dependence; Z68.39 Body mass index [BMI] 39.0-39.9, adult
CPT/HCPCS: 36415; 71045; 71046; 80053; 82550; 82553; 82962; 83735; 83880; 84484; 85025; 85027; 85610; 93005; 93970; 96374; 96375; 96376; 99285; G0378; J1205; J1940; P9047

== ENCOUNTER 2021-10-20 14:25 | Emergency (ER) | payer OTHER ==
[~2021-10-20 14:25] MED LIST changes: +TORSEMIDE20 MG PO
[2021-10-20 15:45] LABS: HEMOGLOBIN 10.8 gm/dl (14.0-17.5); RED BLOOD COUNT 3.88 M/UL (4.20-5.50); WHITE BLOOD COUNT 10.5 K/UL (4.5-11.0)
== END 2021-10-20 18:00 | disposition home or self-care (01) ==
LOC: ER1 14:25
PROVIDERS: Physician Assistant Medical
DX: E87.5 Hyperkalemia (principal); E78.00 Pure hypercholesterolemia, unspecified; I13.0 Hypertensive heart and chronic kidney disease with heart failure and stage 1 through stage 4 chronic kidney disease, or unspecified chronic kidney disease; N18.9 Chronic kidney disease, unspecified; Z95.0 Presence of cardiac pacemaker; I48.91 Unspecified atrial fibrillation; I50.9 Heart failure, unspecified; J44.9 Chronic obstructive pulmonary disease, unspecified; Z85.038 Personal history of other malignant neoplasm of large intestine
CPT/HCPCS: 71045; 80053; 82550; 82553; 83880; 84484; 85025; 93005; 99284

== ENCOUNTER → 2021-10-21 | Outpatient (CLI) | payer OTHER | LOC: LAB 09:41 | PROVIDERS: Emergency Medicine | DX: E87.5 Hyperkalemia (principal) | CPT/HCPCS: 36415; 80048 ==

== ENCOUNTER → 2021-10-23 | Outpatient (CLI) | payer OTHER | LOC: LAB 09:52 | PROVIDERS: Internal Medicine Nephrology | DX: E87.5 Hyperkalemia (principal) | CPT/HCPCS: 36415; 80048 ==

== ENCOUNTER 2021-12-29 14:16 | Emergency (ER) | payer OTHER ==
[2021-12-29 15:02] LABS: HEMOGLOBIN 10.1 gm/dl (14.0-17.5); RED BLOOD COUNT 3.51 M/UL (4.20-5.50); WHITE BLOOD COUNT 11.3 K/UL (4.5-11.0)
[2021-12-30 03:58] LABS: RBC (MANUAL) 221500; WBC (MANUAL) 9650
[2021-12-30] MEDS ORDERED: HYDROCODON-ACE1 EAC4 PO (04:22)
== END 2021-12-30 04:45 | disposition home or self-care (01) ==
LOC: ER1 14:16
PROVIDERS: Physician Assistant; Physician Assistant Medical
DX: I13.0 Hypertensive heart and chronic kidney disease with heart failure and stage 1 through stage 4 chronic kidney disease, or unspecified chronic kidney disease (principal); I50.9 Heart failure, unspecified; E11.22 Type 2 diabetes mellitus with diabetic chronic kidney disease; N18.9 Chronic kidney disease, unspecified; M10.9 Gout, unspecified; I48.91 Unspecified atrial fibrillation; E11.9 Type 2 diabetes mellitus without complications; E78.5 Hyperlipidemia, unspecified; Z95.5 Presence of coronary angioplasty implant and graft; Z95.0 Presence of cardiac pacemaker; Z87.891 Personal history of nicotine dependence
CPT/HCPCS: 20605; 71045; 73130; 80053; 82550; 82553; 82962; 83880; 84484; 84550; 85025; 85652; 86140; 87070; 89051; 93005; 96374; 96375; 99285; J2930

== ENCOUNTER 2022-01-07 12:22 | Emergency (ER) | payer OTHER ==
[~2022-01-07 12:22] MED LIST changes: +HYDROCODON-ACE1 EAC4 PO
[2022-01-07 12:47] LABS: HEMOGLOBIN 9.9 gm/dl (14.0-17.5); RED BLOOD COUNT 3.53 M/UL (4.20-5.50); WHITE BLOOD COUNT 11.2 K/UL (4.5-11.0)
== END 2022-01-07 16:49 | disposition home or self-care (01) ==
LOC: ER1 12:22
PROVIDERS: Emergency Medicine
DX: U07.1 COVID-19 (principal); I11.0 Hypertensive heart disease with heart failure; I50.9 Heart failure, unspecified; E78.5 Hyperlipidemia, unspecified; E11.9 Type 2 diabetes mellitus without complications; Z90.89 Acquired absence of other organs; Z90.49 Acquired absence of other specified parts of digestive tract; Z95.0 Presence of cardiac pacemaker; Z87.891 Personal history of nicotine dependence
CPT/HCPCS: 71045; 80053; 82550; 82553; 84484; 85025; 93005; 99285; M0222; Q0222